=== PATIENT | female | born 1990 ===

== ENCOUNTER 2017-01-09 05:08 | Inpatient (IN) | payer BC, MEDICAID ==
[~2017-01-09] VITALS: Ht 170.2 cm; Wt 81.6 kg
--- NOTE | ~2017-01-09 | OR ---
PATIENT'S NAME: [facility] AGE: 26 Y [address] ROOM: [place] [id number] LOCATION: GOBS ADMIT DATE: 01/09/2017 OR/Procedure Report DISCHARGE DATE: FAMILY PHYSICIAN: , NO ATTENDING PHYSICIAN: Niyah Spaulding SURGEON: Niyah Spaulding MD [employer] INTERN: DATE OF PROCEDURE: 01/09/2017 PREOPERATIVE DIAGNOSES: 1. Intrauterine at 39 weeks and 6 days. 2. Active labor. POSTOPERATIVE DIAGNOSES: 1. Intrauterine at 39 weeks and 6 days. 2. Active labor. PROCEDURE: Spontaneous vaginal delivery. ESTIMATED BLOOD LOSS: 300 mL. ANESTHESIA: Epidural. FINDINGS: Female . score 8 and 9. Weight 7 pounds 11 ounces. Intact placenta. Three-vessel cord. Second-degree perineal laceration. Lightly meconium-stained fluid. INDICATIONS: This patient is a 26-year-old G1 female, who presented to Labor and Delivery in active labor. She had an uncomplicated . She had artificial rupture of membranes. She progressed along a normal labor curve to complete. She underwent expulsive efforts for about an hour. DESCRIPTION OF PROCEDURE: With expulsive effort, the head delivered over an intact perineum. The rest of fetus delivered. The nose and mouth were bulb suctioned. The cord was clamped and cut. The was handed to awaiting team. Cord blood was drawn. The placenta delivered with manual traction. Cervix, vagina, and perineum were examined. Second-degree perineal laceration was noted and repaired in standard fashion. COMPLICATIONS: None. CONDITION: Mom stable in room. to nursery. PATIENT'S NAME: [facility] AGE: 26 Y [address] ROOM: [place] [address] LOCATION: GOBS ADMIT DATE: 01/09/2017 OR/Procedure Report DISCHARGE DATE: FAMILY PHYSICIAN: PHYSICIAN, NO ATTENDING PHYSICIAN: Niyah Spaulding MD MARIE GUILLAUME/ara /[id number] d: 01/10/17 1001 t: 01/23/17 0859, OPERATIVE SUMMARY
[2017-01-09] MEDS ORDERED: PRENATAL 1+1)(P1 TAB PO (05:50)
[2017-01-09] MEDS ORDERED: ZANTAC (NON-FO150 MG PO (05:50)
[2017-01-09 07:16] LABS: BASOPHIL % 0.1 %; EOSINOPHIL % 0.3 %; HEMATOCRIT 27.3 % (33.0-46.0); HEMOGLOBIN 8.3 g/dL (11.0-15.0); IMMATURE GRANULOCYTE % 0.3 %; LYMPHOCYTE % 21.1 %; MCHC 30.4 gm/dL (32.0-36.5); MCV 78.9 fl (83.0-98.0); MONOCYTE # 0.4 K/uL (0.0-1.0); MONOCYTE % 4.7 %; MPV 11.5 fl (9.4-12.4); NEUTROPHIL # (ANC) 6.9 K/uL (1.8-7.8); NEUTROPHIL % 73.5 %; NRBC % 0 /100WBC (0-0.00); PLATELET COUNT 255 K/uL (150-450); RBC 3.46 M/uL (3.50-5.00); RDW-CV 15.3 % (11.9-14.6); WBC 9.3 K/uL (4.0-11.0)
--- NOTE | 2017-01-09 18:34 | NUR ---
Last VS: T:99.9 P:75 R: 18 BP: 141/85 Pain ratin. Last pain med: Epidural Medicated at: ONGOING Effective: Yes FHT: 135 Dilatation: 10 Effacement %: Station: +1 Significant event: COMPLETE AND PUSHING. PITOCIN AUGMENTATION AT 5MU/MIN. TYLENOL GIVEN FOR RISING TEMP. PRESLEY CATHETER IN AND DRAINING YELLOW URINE. *.
[2017-01-10 04:53] LABS: BASOPHIL % 0.1 %; EOSINOPHIL % 0.1 %; HEMATOCRIT 24.5 % (33.0-46.0); IMMATURE GRANULOCYTE # 0.1 K/uL (0.0-0.3); IMMATURE GRANULOCYTE % 0.5 %; LYMPHOCYTE # 2.3 K/uL (0.8-4.0); LYMPHOCYTE % 12.8 %; MCHC 30.6 gm/dL (32.0-36.5); MCV 78.5 fl (83.0-98.0); MONOCYTE # 0.9 K/uL (0.0-1.0); MONOCYTE % 5.1 %; MPV 11.6 fl (9.4-12.4); NEUTROPHIL # (ANC) 14.7 K/uL (1.8-7.8); NEUTROPHIL % 81.4 %; NRBC % 0 /100WBC (0-0.00); PLATELET COUNT 221 K/uL (150-450); RBC 3.12 M/uL (3.50-5.00); RDW-CV 15.7 % (11.9-14.6)
[2017-01-10 04:55] LABS: HEMOGLOBIN 7.5 g/dL (11.0-15.0); WBC 18.1 K/uL (4.0-11.0)
--- NOTE | 2017-01-10 16:58 | NUR ---
Met mom and maternal grandma while FOB slept in the recliner. Introduced myself and explained my role with the CM department. Mom states she has all necessary baby items for baby Ariadne. She is already established with [facility] in [place]. She has not decided on baby's doctor, but thinks she will stay with Dr. Donald here in [place]. Provided her with a list of community resources in [place]. Also discussed signs and symptoms of post depression and left her the handout on this to refer to. She denies any concerns or needs at this time. Will continue to monitor and follow while here.
--- NOTE | 2017-01-10 17:08 | NUR ---
Last VS: T:98.2 P:78 R: 14 BP: 106/64 Pain rating: . Last pain med: percocet at 1241/ motrin 800 mg at 1620 Medicated at: Effective: Breasts: , Nipples: Fundus: firm and 2 fingers down Lochia: small flow Epis/Perineum: bottom ok Voiding well: yes Significant event: . I took saline lock out and gave patient her Rubella shot this pm and patient took a jaccuzzi bath.
--- NOTE | 2017-01-11 04:43 | NUR ---
VSS; fundus firm, 2below, small flow; Last motrin at 0150. Last Percocet at 0425; Up ad pamella; Needs paternity signed. Videos are done.
[2017-01-11] MEDS ORDERED: FEOSOL325 MG PO (11:36)
[2017-01-11] MEDS ORDERED: DERMOPLAST SPRA56 GM TOP (11:37)
[2017-01-11] MEDS ORDERED: MOTRIN800 MG PO (11:38)
[2017-01-11] MEDS ORDERED: PERCOCET 5-3251 EACH PO (11:39)
== END 2017-01-11 13:00 | disposition disaster alternative care site (69) | DRG 775 ==
LOC: GOBM 05:08 → GOBS 05:08 → GOBM 10:04 → GOBS 10:05
PROVIDERS: ADMIT Obstetrics & Gynecology
PROC: 10907ZC Drainage of Amniotic Fluid, Therapeutic from Products of Conception, Via Natural or Artificial Opening (ICD-10-PCS; principal; 2017-01-09)
PROC: 0KQM0ZZ Repair Perineum Muscle, Open Approach (ICD-10-PCS; principal; 2017-01-09)
PROC: 10E0XZZ Delivery of Products of Conception, External Approach (ICD-10-PCS; principal; 2017-01-09)
DX: O70.1 Second degree perineal laceration during delivery (principal); Z37.0 Single live birth; N96 Recurrent pregnancy loss; O77.0 Labor and delivery complicated by meconium in amniotic fluid; Z3A.39 39 weeks gestation of pregnancy; Z87.51 Personal history of pre-term labor
CPT/HCPCS: J2001; J2590; J3010; J7120